=== PATIENT | female | born 1995 | race Caucasian/White ===

== ENCOUNTER 2017-08-26 22:00 | Inpatient (IN) | payer OTHER ==
[~2017-08-26] VITALS: Ht 154.9 cm; Wt 48.1 kg
[2017-08-26 22:45] VITALS: BP 103/64
--- NOTE | 2017-08-26 22:45 | NUR ---
MS RN NOTE: RECEIVED PATIENT FROM [facility], NO ACUTE DISTRESS NOTED. BREATHING EVEN AND UNLABORED, NO SOB NOTED. IV TO LAC #[address] ORIENTED PATIENT TO ROOM AND USE OF CALL LIGHT. BED LOCKED AND IN LOWEST POSITION, CALL LIGHT IN REACH. WILL CONTINUE TO MONITOR.
[2017-08-26] MEDS ORDERED: Z GUARD REMEDY 2 OZ OINT TP PRN (23:00)
[2017-08-26] MEDS ORDERED: MAGNESIUM HYDROXIDE 30 ML UDC PO PRN (23:00)
[2017-08-26] MEDS ORDERED: CEFTRIAXONE 1 G in IV D5W 50 ML IV SCH (23:00)
[2017-08-26] MEDS ORDERED: ZOLPIDEM TARTRATE 5 MG TABLET PO PRN (23:00)
[2017-08-26] MEDS ORDERED: ONDANSETRON HCL/PF 4 MG/2 ML VIAL IVP PRN (23:00)
[2017-08-26] MEDS ORDERED: ACETAMINOPHEN 325 MG TABLET PO PRN (23:00)
[2017-08-26] MEDS ORDERED: MAG HYDROX/AL HYDROX/SIMETH 30 ML UDC PO PRN (23:00)
[2017-08-26 23:15] LABS: EOSINOPHILS % (AUTO) 0.1 % (0.0-6.0); HEMATOCRIT 36 % (33-45); LYMPHOCYTES # (AUTO) 1.5 /CMM (0.8-4.8); LYMPHOCYTES % (AUTO) 8.2 % (20.0-44.0); MEAN CORPUSCULAR HEMOGLOBIN 29 PG (26.0-33.0); MEAN CORPUSCULAR HGB CONC 33 g/dl (31.0-36.0); MEAN CORPUSCULAR VOLUME 88 fL (82-100); MONOCYTES # (AUTO) 0.5 /CMM (0.1-1.30); MONOCYTES % (AUTO) 2.8 % (2.0-12.0); NEUTROPHILS # (AUTO) 16.5 /CMM (1.8-8.9); NEUTROPHILS % (AUTO) 88.9 % (43.0-81.0); PLATELET COUNT (AUTO) 278 /CMM (150-450); RDW COEFFICIENT OF VARIATION 13.4 (11.5-15.0); RED BLOOD CELL COUNT(AUTO) 4.11 MIL/uL (4.0-5.2); WHITE BLOOD COUNT (AUTO) 18.6 K/uL (4.3-11.0)
[2017-08-26 23:26] LABS: CALCIUM, SERUM 9.3 mg/dL (8.5-10.1); CREATININE 0.6 mg/dL (0.6-1.3); MAGNESIUM 1.8 mg/dL (1.8-2.4); POTASSIUM 3.7 mmol/L (3.5-5.1)
[2017-08-26] MEDS ORDERED: CEFTRIAXONE 1 G VIAL ONE (23:39)
[2017-08-26] MEDS: IV NS 0.9% 1,000 ML IV PRN (23:43)
[2017-08-27 00:52] LABS: APPEARANCE,URINE CLEAR (CLEAR); BILIRUBIN,URINE NEGATIVE (NEGATIVE); BLOOD, URINE TRACE-INTA Ery/uL (NEGATIVE); COLOR,URINE YELLOW (YELLOW); KETONES,URINE NEGATIVE (NEGATIVE); LEUKOCYTE ESTERASE ,URINE 1+ (NEGATIVE); NITRITE, URINE NEGATIVE (NEGATIVE); PROTEIN,URINE NEGATIVE (NEGATIVE); UGLUCOSE NEGATIVE (NEGATIVE); UROBILINOGEN,URINE 0.2 EU/dL (0.2)
[2017-08-27 00:56] LABS: BACTERIA,URINE None seen /HPF (None Seen); SQUAMOUS EPITHELIAL CELL,UR Moderate /HPF (None Seen)
[2017-08-27] MEDS ORDERED: KETOROLAC TROMETHAMINE INJ 30 MG/ML VIAL IM PRN (01:00)
--- NOTE | 2017-08-27 01:30 | NUR ---
MS RN NOTE: PATIENT MOVED TO ROOM 209-2, TOILET LEAKING IN ROOM 204-2. BELONGINGS MOVED TO ROOM. BED LOCKED AND IN LOWEST POSITION, CALL LIGHT IN REACH. [facility] SUPERVISOR INFORMED THAT TOILET LEAKING.
--- NOTE | 2017-08-27 06:10 | NUR ---
MS RN NOTE: PATIENT RESTING IN BED, NO ACUTE DISTRESS NOTED. BREATHING EVEN AND UNLABORED, NO SOB NOTED. IV TO LAC #[address] BED LOCKED AND IN LOWEST POSITION, CALL LIGHT IN REACH. WILL ENDORSE TO DAY NURSE TO CONTINUE WITH PLAN OF CARE.
[2017-08-27 06:13] LABS: BASOPHILS % (AUTO) 0.2 % (0.0-2.0); EOSINOPHILS # (AUTO) 0.1 /CMM (0.0-0.7); HEMATOCRIT 35 % (33-45); HEMOGLOBIN 11.9 g/dL (11.5-14.8); LYMPHOCYTES # (AUTO) 1.6 /CMM (0.8-4.8); LYMPHOCYTES % (AUTO) 16.2 % (20.0-44.0); MEAN CORPUSCULAR HEMOGLOBIN 30 PG (26.0-33.0); MEAN CORPUSCULAR HGB CONC 34 g/dl (31.0-36.0); MEAN CORPUSCULAR VOLUME 88 fL (82-100); MONOCYTES # (AUTO) 0.4 /CMM (0.1-1.30); MONOCYTES % (AUTO) 3.9 % (2.0-12.0); NEUTROPHILS % (AUTO) 78.7 % (43.0-81.0); PLATELET COUNT (AUTO) 270 /CMM (150-450); RDW COEFFICIENT OF VARIATION 13.3 (11.5-15.0); WHITE BLOOD COUNT (AUTO) 10.2 K/uL (4.3-11.0)
[2017-08-27 06:19] LABS: CALCIUM, SERUM 8.7 mg/dL (8.5-10.1); CREATININE 0.5 mg/dL (0.6-1.3); MAGNESIUM 1.8 mg/dL (1.8-2.4); PHOSPHORUS 4.7 mg/dL (2.5-4.9); POTASSIUM 3.5 mmol/L (3.5-5.1)
--- NOTE | 2017-08-27 07:20 | NUR ---
RN INITIAL NOTES: PATIENT RESTING IN BED. PATIENT ALERT ORIENTED X4. NONLABORED BREATHING ON ROOM AIR. IV SITE PATENT AND INTACT. NONLBAORED BREATHING ON ROOM AIR. PATIENT DENIES PAIN. BED IN LOWEST LOCKED POSITION. CALL LIGHT WITHIN REACH. WILL CONTINUE TO MONITOR
[2017-08-27 08:00] VITALS: BP 95/61
[2017-08-27] MEDS: DOXYCYCLINE HYCLATE (100 MG) 100 MG TABLET PO SCH ×2 (09:11→20:24)
[2017-08-27] MEDS: HYDROCODONE/APAP 5/325MG 1 EACH TABLET PO PRN ×2 (09:12→21:32)
[2017-08-27] MEDS: IV NS 0.9% 1,000 ML IV PRN (12:28)
[2017-08-27 16:00] VITALS: BP 96/57
--- NOTE | 2017-08-27 18:49 | NUR ---
RN CLOSING NOTES: PATIENT RESTING IN BED. PATIENT ALERT ORIENTED X4. NONLABORED BREATHING ON ROOM AIR. IV SITE PATENT AND INTACT, GAUGE 20 ON LEFT AC. NONLBAORED BREATHING ON ROOM AIR. PATIENT DENIES PAIN. BED IN LOWEST LOCKED POSITION. CALL LIGHT WITHIN REACH.PATIENT AFEBRILE. WILL ENDORSE TO NEXT SHIFT
[2017-08-27 20:00] VITALS: BP 111/74
--- NOTE | 2017-08-27 20:10 | NUR ---
RN NOTES RECEIVED PATIENT IN BED, ALERT AND ORIENTED X4, CALM, NO SOB, TOLERATING ROOM AIR, SPO2 100%, DENIES ANY PAIN AT THIS TIME, LEFT AC PERIPHERAL LINE IS PATENT AND INFUSING WELL. NEEDS ATTENDED, BOYFRIEND AT THE BEDSIDE, CALL LIGHT WITHIN REACH.
--- NOTE | 2017-08-27 21:46 | NUR ---
RN NOTES COMPLAINING OF 5/10 PAIN TO ABDOMEN, GIVEN NORCO 5/325 PO PRN. MADE COMFORTABLE, WILL CONTINUE TO MONITOR.
[2017-08-27] MEDS ORDERED: CEFTRIAXONE 1 G in IV D5W 50 ML IV SCH (23:00)
[2017-08-28] MEDS: IV NS 0.9% 1,000 ML IV PRN (06:11)
--- NOTE | 2017-08-28 06:56 | NUR ---
RN NOTES PATIENT IS ALERT AND AWAKE, NO SOB, NO DISTRESS, NO VOMITING DURING SHIFT, PROVIDED NORCO 5/325 PO PRN FOR ABDOMINAL PAIN X1, SLEPT FOR 6 HOURS, NEEDS ATTENDED, CALL LIGHT WITHIN REACH.
--- NOTE | 2017-08-28 07:10 | NUR ---
RN NOTES INITIAL: PATIENT ALERT ORIENTED X4. NONLABORED BREATHING ON ROOM AIR. NO SIGNS OF DISTRESS. PATIENT DENIES PAIN AT THE MOMENT. IV SITE PATENT AND INTACT. BED IN LOWEST LOCKED POSITION. CALL LIGHT WITHIN REACH. WILL CONTINUE TO MONITOR PATIENT
[2017-08-28 08:00] VITALS: BP 93/62
[2017-08-28] MEDS: DOXYCYCLINE HYCLATE (100 MG) 100 MG TABLET PO SCH (08:56)
[2017-08-28] MEDS ORDERED: DOXY100C2 PO (14:31)
--- NOTE | 2017-08-28 16:32 | NUR ---
RN CLOSING NOTES: PATIENT DISCHARGED PER [employer] ORDERS. NONLABORED BREATHING ON ROOM AIR. VS WNL. PATIENT DENIES PAIN AT THE MOMENT. IV SITE TAKEN OUT. NO SIGNS OF DISTRESS. PATIENT REFUSED FLU VACCINE. BENEFITS AND RISKS EXPLAINED. EXISTCARE INSTRUCTIONS EDUCATED TO PATIENT. PATIENT EDUCATED ON [employer], INSPECTION CLERK, DISCHARGE NOTES. PATIENT VERBALIZED EDUCATION. PATIENT GIVEN [employer] PAPER WORK WELL CD. PRESCRIPTION GIVEN TO PATIENT. VALUABLES GIVEN TO PATIENT WELL. PATIENT LEFT WITH BOYFRIEND, ADILENE, VIA PRIVATE CAR. REFUSED TO HAVE STAFF MEMBER ACCOMPANY THEM
== END 2017-08-28 16:36 | disposition home or self-care (01) | DRG 720 ==
LOC: MEDSG2 22:00
PROVIDERS: ADMIT Internal Medicine; ATTEND Internal Medicine
DX: A41.9 Sepsis, unspecified organism (principal); N39.0 Urinary tract infection, site not specified; N73.9 Female pelvic inflammatory disease, unspecified; K21.9 Gastro-esophageal reflux disease without esophagitis
CPT/HCPCS: 36415; 80048-TC; 81000-TC; 83735-TC; 84100-TC; 84702-TC; 85025-TC; 87081-TC; A6402; J0696; J7030; J7060; Z7610